=== PATIENT | female | born 1960 | race Caucasian/White ===

== ENCOUNTER 2019-03-09 15:44 | Emergency (ER) | payer OTHER, SELFPAY ==
--- NOTE | 2019-03-09 16:52 | CT ---
Head CT without contrast 03/09/2019: Comparison: None HISTORY: Fall, trauma, pain TECHNIQUE: Axial CT imaging at 5 mm intervals from vertex through skull base without contrast FINDINGS: Imaged paranasal sinuses and mastoid air cells well-aerated. No displaced calvarial fractur e, intracranial hemorrhage, midline shift, or mass effect. IMPRESSION: No acute findings.
--- NOTE | 2019-03-09 17:12 | RAD ---
Left knee 4 views: 03/09/2019 COMPARISON: None HISTORY: Injury, trauma, pain FINDINGS: No fracture or dislocation. No radiopaque foreign body or subcutaneous gas. Enthesophyte fo rmation at insertion of quadriceps tendon and origin of patellar tendon. IMPRESSION: No acute findings.
--- NOTE | 2019-03-09 17:15 | RAD ---
3 views left foot: 03/09/2019 COMPARISON: None HISTORY: Fall, trauma, pain FINDINGS: No fracture or dislocation. No radiopaque foreign body or subcutaneous gas. Prominent enthe sophyte formation at origin of plantar aponeurosis. Dorsal midfoot degenerative change/osteophyte formation. Mild enthesophyte formation at origin of plantar aponeurosis. IMPRESSION: No acute findings.
[2019-03-09] MEDS ORDERED: Adacel (T-DAP) 0.5 ML SYRINGE ONE (17:34)
[2019-03-09] MEDS ORDERED: Bacitracin 1 PK ONE (17:34)
== END 2019-03-09 18:05 | disposition home or self-care (01) ==
LOC: ERS 15:44
DX: S80.11XA Contusion of right lower leg, initial encounter (principal); S00.03XA Contusion of scalp, initial encounter; S90.812A Abrasion, left foot, initial encounter; F17.210 Nicotine dependence, cigarettes, uncomplicated; T14.8XXA Other injury of unspecified body region, initial encounter; Z23 Encounter for immunization; W18.30XA Fall on same level, unspecified, initial encounter
CPT/HCPCS: 70450; 90471; 90715

== ENCOUNTER 2019-11-10 12:07 | Emergency (ER) | payer OTHER, SELFPAY ==
[2019-11-11 12:20] LABS: SARS-CoV-2 MS2 Positive; SARS-CoV-2 N Gene Negative; SARS-CoV-2 S Gene Negative; SARS-CoV-2 by NAA Not Detected (NotDetected); SARS-CoV-2 orf1ab Negative
== END 2019-11-10 12:29 | disposition home or self-care (01) ==
LOC: ERS 12:07
DX: Z20.828 Contact with and (suspected) exposure to other viral communicable diseases (principal); F17.210 Nicotine dependence, cigarettes, uncomplicated
CPT/HCPCS: 87635; 99283; U0003

== ENCOUNTER 2025-02-27 10:06 | Outpatient (CLI) | payer OTHER, SELFPAY | END 2025-02-27 10:07 | disposition home or self-care (01) | LOC: BICRAD 10:06 | PROVIDERS: ATTEND Family Medicine | DX: R10.11 Right upper quadrant pain (principal); G89.29 Other chronic pain; Z90.49 Acquired absence of other specified parts of digestive tract; Z00.00 Encounter for general adult medical examination without abnormal findings | CPT/HCPCS: 36415; 74019; 80053; 80061; 83036; 84443; 85025 ==

== ENCOUNTER 2025-03-05 11:02 | Outpatient (CLI) | payer MEDICARE, OTHER | END 2025-03-05 11:03 | disposition home or self-care (01) | LOC: BICRAD 11:02 | PROVIDERS: ATTEND Family Medicine | DX: M25.511 Pain in right shoulder (principal); G89.29 Other chronic pain; M19.011 Primary osteoarthritis, right shoulder ==